=== PATIENT | female | born 1995 | race Two or more races ===

== ENCOUNTER 2022-08-13 13:35 | Outpatient (REF) | payer MEDICAID, SELFPAY ==
[2022-08-13 16:23] LABS: CT PCR NOT DETECTED (Not Detect.); NG PCR NOT DETECTED (Not Detect.)
[2022-08-14 11:14] LABS: BV Int Neg Control Negative (Negative); BV Int Pos Control Positive (Positive)
== END 2022-08-13 13:36 | disposition home or self-care (01) ==
LOC: HO.LNP 13:35
PROVIDERS: Visit Provider Advanced Practice Midwife
DX: Z01.419 Encounter for gynecological examination (general) (routine) without abnormal findings (principal)
CPT/HCPCS: 0353U; 81025; 87480; 87510; 87660; 88142